=== PATIENT | male | born 1980 | race Caucasian/White ===

== ENCOUNTER 2017-12-02 17:51 | Emergency (ER) | payer OTHER ==
[~2017-12-02] VITALS: Ht 188 cm; Wt 127.0 kg
[2017-12-02] MEDS ORDERED: NKM (18:08)
[2017-12-02 18:16] VITALS: BP 146/81
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
[2017-12-02] MEDS ORDERED: Methocarbamol 500mg tab ORAL ONE (18:30)
[2017-12-02] MEDS ORDERED: TYLENOL EXTRA500 MG ORAL (18:51)
[2017-12-02] MEDS ORDERED: ROBAXIN500 MG PO (18:51)
[2017-12-02 19:15] VITALS: BP 140/81
== END 2017-12-02 19:25 | disposition home or self-care (01) ==
LOC: EMR 19:17
DX: M25.512 Pain in left shoulder (principal); V43.52XA Car driver injured in collision with other type car in traffic accident, initial encounter; Y92.410 Unspecified street and highway as the place of occurrence of the external cause
CPT/HCPCS: 99284